=== PATIENT | male | born 1935 | race Caucasian/White ===

== ENCOUNTER 2017-05-03 11:10 | Inpatient (IN) | payer MEDICARE, BC, SELFPAY | END 2017-05-05 13:00 | disposition home or self-care (01) | DRG 179 | PROVIDERS: Admitting Provider Internal Medicine Adolescent Medicine; Emergency Provider Emergency Medicine; Family Provider Internal Medicine Adolescent Medicine; Visit Provider Internal Medicine Adolescent Medicine | DX: J15.6 Pneumonia due to other Gram-negative bacteria (principal); E86.0 Dehydration; R06.09 Other forms of dyspnea; E11.9 Type 2 diabetes mellitus without complications; I10 Essential (primary) hypertension; Z79.4 Long term (current) use of insulin | CPT/HCPCS: 36415; 71010; 80048; 80053; 80162; 82550; 82553; 82962; 83605; 84484; 85025; 87040; 87070; 87077; 87186; 87205; 93005; 94640; 94760; 96365; 96367; 97116; 97162; 99285; G0378; J0456 ==

== ENCOUNTER → 2018-12-18 08:53 | Outpatient (CLI) | payer MEDICARE, SELFPAY ==
[2018-12-18 10:26] LABS: Basophils # 0.1 K/mm3 (0-0.2); Basophils % 1.1 % (0.1-2.0); Eosinophils # 0.1 K/mm3 (0.0-0.4); Hematocrit 43.3 % (42.0-52.0); Hemoglobin 13.6 g/dL (14.1-18.0); Lymphocytes # 1.6 K/mm3 (0.7-4.5); Lymphocytes % 25.6 % (10-50); Mean Corpuscular HGB Conc 31.4 g/dL (31.8-35.4); Mean Corpuscular Hemoglobin 28.9 pg (27.0-31.2); Mean Corpuscular Volume 92.1 fl (80-94); Mean Platelet Volume 8.4 fl (7.4-10.4); Monocytes # 0.4 K/mm3 (0.1-1.0); Neutrophils % 64.2 % (37.0-80.0); Platelet Count 246 K/mm3 (142-424); Red Cell Distribution Width 13.1 % (11.5-17.5); White Blood Count 6.2 K/mm3 (4.8-10.8)
[2018-12-18 11:11] LABS: Alanine Aminotransferase 25 U/L (12-78); Albumin Level 3.5 gm/dL (3.4-5.0); Albumin/Globulin Ratio 0.7 (1.1-1.8); Alkaline Phosphatase 51 U/L (46-116); Anion Gap 11.3 mEq/L (5-15); Aspartate Amino Transferase 21 U/L (15-37); Bilirubin,Total 0.6 mg/dL (0.2-1.0); Blood Urea Nitrogen 25 mg/dL (7-18); Calcium 9.9 mg/dL (8.5-10.1); Carbon Dioxide 32 mmol/L (21.0-32.0); Chloride 97 mmol/L (98-107); Creatinine,Serum 1.56 mg/dL (0.70-1.30); Estimated Glomerular Filt Rate 43 ml/min (>60); GFR (African American) 52 ML/MIN (>60); Globulin 4.9 gm/dl (1.3-3.2); Glucose 191 mg/dL (74-106); Potassium 4.3 mmoL/L (3.5-5.1); Sodium 136 mmol/L (136-145); Total Protein,Serum 8.4 gm/dL (6.4-8.2)
[2018-12-18 12:43] LABS: Hemoglobin A1C 8.5 % (0.0-7.0)
== END ==
PROVIDERS: Visit Provider Internal Medicine Adolescent Medicine
DX: E11.9 Type 2 diabetes mellitus without complications (principal); I10 Essential (primary) hypertension
CPT/HCPCS: 36415; 80053; 83036; 85025

== ENCOUNTER 2019-12-16 13:49 | Inpatient (IN) | payer MEDICARE, SELFPAY ==
[2019-12-16] VITALS (12 sets, daily range): BP systolic 150–221; BP diastolic 66–128; PULSE 66–104; RESP 16–19; TEMP 36.4–37.1; O2SAT 95–100; BMI 18.3; BMI 15.2
--- NOTE | 2019-12-16 14:02 | HMH.EDGENADL ---
ED Disposition Clinical Impression: Hypertensive urgency, ALFONSO (acute kidney injury), Hyperglycemia Atrial fibrillation Qualifiers: Atrial fibrillation type: unspecified Qualified Code(s): I48.91 - Unspecified atrial fibrillation Disposition: Admitted As Inpatient Condition on Discharge: Fair Instructions: DI for Diarrhea and Traveler's Diarrhea -- Adult, DI for Diarrhea and Traveler's Diarrhea -- Child, DI for Nausea -- Adult, DI for Nausea -- Child Referrals: Abner Cuellar MD [Primary Care Provider] - Time of Disposition: 16:51 - Critical Care Critical Care Time: No Attestation: On , the high probability of a clinically significant, sudden or life threatening deterioration of the following system(s) required my full and direct attention, intervention and personal management. The time I documented below is in addition to time spent performing reported procedures but includes the following listed in this critical care notation. Medical Decision Making - Medical Records MR Comment: 84-year-old male with a history of hypertension diabetes presents emergency department with increased weakness and was found to be hyperglycemic on arrival here, he is also been nauseated. He arrives to the ED hemodynamically stable with tachycardia. His abdominal exam is entirely benign. He denies any chest pain shortness of breath, ACS considered. Infectious process/DKA also considered, no fever at home. No Localizing neurological deficits that would suggest CVA. Will get labs including troponin, EKG, UA, chest x-ray, CT head treat with fluid bolus and reassess. On reassessment, patient remains well. His glucose is over 700 and an anion gap concerning for DKA, he has increased troponin, EKG showing atrial fibrillation. He has ST changes in V3, however this is unchanged on repeat EKGs. He also has acute kidney injury on labs with increased creatinine. His blood pressure was elevated and he was treated with labetalol for this with good results. Initial pressure was over 200 systolic/110 diastolic. After treatment with labetalol he was 150 over 90s. He denies any nausea or vomiting at this time. Denies any chest pain. Both with his partner who is in the room with him about his CODE STATUS and how much intervention that they desire, and she is unsure. She thinks that he would want very little medical intervention, but wants to talk to his family about it. I spoke with her multiple times and at the time of admission his CODE STATUS is not clear and I explained to her we would have to make him full code for now, but that she should continue to talk to family members including his children about this so that we can proceed with his wishes in mind. Spoke to his PCP and he will be admitted for further treatment. Stable. - Ang Inquiry Pt receiving controlled substance: No Vital Signs: 12/16/19 13:50 12/16/19 14:35 12/16/19 14:49 Temperature 98.1 F Temperature Source Oral Pulse Rate [Left Radial] 104 H 100 H Respiratory Rate 16 Blood Pressure 181/128 H Blood Pressure [Right Arm] 216/100 H 221/100 H Blood Pressure Mean [Right Arm] 138 140 Blood Pressure Source [Right Arm] Automatic Cuff Blood Pressure Position [Right Arm] Sitting Sitting 02 Sat by Pulse Oximetry 96 97 Oxygen Delivery Method Room Air Room Air 12/16/19 14:54 12/16/19 15:02 12/16/19 16:07 Temperature Temperature Source Pulse Rate [Left Radial] 66 75 81 Respiratory Rate Blood Pressure Blood Pressure [Right Arm] 176/73 H 150/72 H 173/89 H Blood Pressure Mean [Right Arm] 107 98 117 Blood Pressure Source [Right Arm] Automatic Cuff Automatic Cuff Automatic Cuff Blood Pressure Position [Right Arm] Sitting Sitting Sitting 02 Sat by Pulse Oximetry 95 Oxygen Delivery Method Room Air 12/16/19 16:30 Temperature Temperature Source Pulse Rate [Left Radial] 78 Respiratory Rate Blood Pressure Blood Pressure [Right Arm] 181/76 H Blood Pr
--- NOTE | 2019-12-16 14:03 | XR_ITS ---
PROCEDURE: XR CHEST PORTABLE CLINICAL HISTORY: weakness Former smoker COMPARISON: CXR2 CHEST-AP VIEW ONLY from 11/20/2013 CXR CHEST(2 VIEWS-NOT PORTABLE) from 06/05/2015 CXR1 CHEST-PORTABLE from 05/03/2017 FINDINGS: Mild cardiomegaly without failure. Skin fold artifacts are present on both sides. No lobar consolidation or collapse. No acute bony anomaly. Diffuse coarse calcification noted over the upper abdomen consistent with chronic pancreatitis IMPRESSION: Cardiomegaly, no acute finding of the chest. Chronic pancreatitis Dictated by: Oscar Ruth MD 12/16/2019 15:48 Electronically signed by Oscar Ruth MD in [place] 12/16/2019 15:48
--- NOTE | 2019-12-16 14:07 | CT_ITS ---
PROCEDURE: CT HEAD/BRAIN WO CON CLINICAL INDICATION: confusion COMPARISON: HDWO CT HEAD W/O CONTRAST from 03/03/2016 TECHNIQUE: Axial images obtained. All CT scans at the facility use one or more dose reduction, viz: automated exposure control, ma/kV adjustment per patient size (including targeted exams where dose is matched to indication, i.e. head), or iterative reconstruction technique. FINDINGS: No midline shift, mass effect, intracranial hemorrhage, hydrocephalus, or extra-axial fluid collection is evident. There is generalized atrophy with hypoattenuation of the periventricular white matter consistent with microangiopathic changes.. 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 The calvarium has an unremarkable appearance. No mastoid effusion. No sinus air-fluid level. IMPRESSION: No acute intracranial finding Dictated by: Oscar Ruth MD 12/16/2019 15:41 Electronically signed by Oscar Ruth MD in [facility] 12/16/2019 15:41
[2019-12-16 14:15] LABS: VBG Base Excess -10.2 mmol/L (-2.4-2.3); VBG HCO3 16.8 mmol/L (23-30); VBG Oxygen Saturation 86.5 % (50-70); VBG PCO2 38.1 mmol/L (35-51); VBG PH 7.26 mmol/L (7.31-7.41); VBG PO2 59.1 mmol/L (28-40)
[2019-12-16 14:15] LABS: Chloride 82 mmol/L (98-107); Sodium 133 mmol/L (136-145)
[2019-12-16 14:17] LABS: Alanine Aminotransferase 31 U/L (12-78); Albumin Level 4.5 g/dl (3.5-5.0); Alkaline Phosphatase 70 U/L (38-126); Aspartate Amino Transferase 46 U/L (17-59); Bilirubin,Direct 0.7 mg/dl (0.0-0.4); Bilirubin,Indirect 0.5 mg/dL (0.0-0.9); Bilirubin,Total 1.2 mg/dl (0.2-1.3); Bilirubin,Unconjugated 0.6 mg/dL (0.0-1.1); Total Protein,Serum 9.1 g/dl (6.3-8.2)
[2019-12-16 14:18] LABS: Blood Urea Nitrogen 49 mg/dl (9-20); Calcium 10.1 mg/dl (8.4-10.2); Carbon Dioxide 16 mmol/L (22.0-30.0); Creatinine Clearance Estimated 19 mL/min (50-200); Estimated Glomerular Filt Rate 25 ml/min (>60); GFR (African American) 30 ML/MIN (>60)
--- NOTE | 2019-12-16 14:22 | ECG_ITS ---
APPROVED REPORT Exam: Resting ECG HR:101 bpm ECG Measurements Heart Rate 101 AXES QRSd 96 QRS 77 QT 376 T 251 QTc 487 <Conclusion> Atrial fibrillation with rapid ventricular response with premature ventricular or aberrantly conducted complexes Voltage criteria for left ventricular hypertrophy Marked ST abnormality, possible inferior/lateral subendocardial injury Abnormal ECG Electronically signed by : Simon Madrigal, 12/17/2019 15:39:32
[2019-12-16 14:23] LABS: Basophils % 0.2 % (0.1-2.0); Hematocrit 48.2 % (42.0-52.0); Hemoglobin 14.8 g/dL (14.1-18.0); Lymphocytes # 0.5 K/mm3 (0.7-4.5); Lymphocytes % 3.3 % (10-50); Mean Corpuscular HGB Conc 30.7 g/dL (31.8-35.4); Mean Corpuscular Hemoglobin 30.3 pg (27.0-31.2); Mean Corpuscular Volume 98.7 fl (80-94); Mean Platelet Volume 10.7 fl (7.4-10.4); Monocytes # 0.6 K/mm3 (0.1-1.0); Monocytes % 4.1 % (1.7-9.3); Neutrophils # 12.8 K/mm3 (1.8-7.8); Neutrophils % 92.3 % (37.0-80.0); Platelet Count 339 K/mm3 (142-424); Red Blood Count 4.89 M/mm3 (4.60-6.20); Red Cell Distribution Width 12.9 % (11.5-17.5); White Blood Count 13.8 K/mm3 (4.8-10.8)
[2019-12-16 14:29] LABS: MANUAL DIFFERENTIAL MANUAL DIFFERENTIAL (MANUAL DIFF)
[2019-12-16 14:30] LABS: Troponin I 0.83 ng/ml (0.00-0.034)
[2019-12-16 14:31] LABS: Glucose 722 mg/dl (74-100)
--- NOTE | 2019-12-16 14:42 | PC.NURSE ---
lab at bedside
[2019-12-16 14:43] LABS: Acetone, Serum (Rapid) Moderate (None Detect)
--- NOTE | 2019-12-16 15:10 | PC.NURSE ---
pt attempted to void per urinal, pt unable to void
--- NOTE | 2019-12-16 15:15 | PC.NURSE ---
pt to CT
[2019-12-16 15:20] LABS: Lymphocytes % 5 % (10-50); Monocytes % 2 % (2-9); Neutrophils % 93 % (42-76); RBC Morphology Normal; Total Cells Counted 100
[2019-12-16 15:21] LABS: Platelet Estimate Normal
[2019-12-16 15:33] LABS: INR 1.14 (0.9-1.1); Prothrombin Time 11.6 seconds (9.4-11.8)
[2019-12-16 15:34] LABS: Activated Partial Thrombo Time 23.7 seconds (23.6-34.0)
--- NOTE | 2019-12-16 15:55 | ECG_ITS ---
APPROVED REPORT Exam: Resting ECG HR:81 bpm ECG Measurements Heart Rate 81 AXES QRSd 96 QRS 75 QT 380 T 258 QTc 441 <Conclusion> Atrial fibrillation with premature ventricular or aberrantly conducted complexes Voltage criteria for left ventricular hypertrophy Marked ST abnormality, possible inferior/lateral subendocardial injury Abnormal ECG Electronically signed by : Simon Madrigal, 12/17/2019 15:36:32
--- NOTE | 2019-12-16 15:56 | PC.NURSE ---
UVALDO ELENA speaking with Dr. Cuellar
--- NOTE | 2019-12-16 16:02 | PC.NURSE ---
dr valdivia spoke with dr jeff regarding admission
--- NOTE | 2019-12-16 17:10 | PC.NURSE ---
BS 523
--- NOTE | 2019-12-16 17:34 | PC.NURSE ---
and daughter at bedside, attempted to discuss DNR status, pt's daughter states my brother is POA, I will have to talk to him
[2019-12-16 18:29] LABS: Troponin I 3.91 ng/ml (0.00-0.034)
--- NOTE | 2019-12-16 19:20 | PC.NURSE ---
report given to katlin
--- NOTE | 2019-12-16 21:22 | HMH.HP ---
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 He did not want to come to the hospital and stated that he felt fine. In the emergency department he was found to have significant dehydration, elevated troponins, atrial fibrillation with rapid ventricular response and hypertensive crisis with blood pressure in the 190s. He was also found to have significant hyperglycemia with blood sugar in the 700 range. Chest x-ray showed cardiomegaly, and CT scan showed old atrophy and old ischemic changes. He was given IV fluids, IV labetalol I was consulted by ER doctor. I recommended symptomatic treatment/supportive care with fluids, treatment of his hypertension and gentle lowering of his glucose. I examined him later in the afternoon on second floor and discussed case with his daughter and his long-time group sales coordinator. The patient continues to state that he feels well and he denies any chest pain, shortness or breath or chest pain. [facility] History Medical History: Reports:: Atrial Fibrillation, Cancer (PROSTATE), Diabetes Mellitus Type 2, Hyperlipidemia, Hypertension Denies:: Diabetes Mellitus Type 1, Internal Pacemaker, MRSA *Have you ever received a pneumonia vaccine?: No *Have you received a flu vaccine this season?: No Comment:: Chronic insomnia and long-term benzo use qhs Other Surgeries: No: Pacemaker Amputation: No Fractures: No - *Social History Last grade of school completed: 7th or 8th Smoking Status: Former smoker # Packs/Day (cigarettes): 2 Alcohol Intake: never *Occupational Status:: retired Housing: house Household Members: other *Travel in the last 8 weeks: None Family Hx:: Coronary Artery Disease, Diabetes, Hyperlipidemia, Hypertension Review of Systems - Review of Systems Review of systems:: pertinent systems reviewed and negative unless documented below - Constitutional Reports weakness - ENT Reports abnormal hearing, Reports poor balance, Reports dizziness - *Cardiovascular Reports shortness of breath - *Genitourinary Reports difficulty urinating - *Musculoskeletal Reports abnormal walking - *Neurologic Reports confusion - Psychiatric Reports abnormal sleep pattern Meds Home Medications Medication Instructions Recorded Confirmed Type Digoxin [Digoxin 0.125mg Tablet] 125 mcg PO DAILY 12/16/19 12/16/19 History Potassium Chloride 10 meq PO DAILY 12/16/19 12/16/19 History Temazepam [Restoril] 30 mg PO DAILY 12/16/19 12/16/19 History Triamterene/Hydrochlorothiazid 1 each PO DAILY 12/16/19 12/16/19 History [Triamterene-Hctz 37.5-25 mg Tb] Allergies Allergy/AdvReac Type Severity Reaction Status Date / Time No Known Allergies Allergy Unverified 05/23/17 14:10 Exam Vital signs and Labs for Last 24 Hours: Temp Pulse Resp BP Pulse Ox 97.6 F 89 16 182/92 H 99 12/16/19 17:43 12/16/19 17:43 12/16/19 17:43 12/16/19 17:43 12/16/19 18:32 Laboratory Results - last 24 hr 12/16/19 13:45: WBC 13.8 H, RBC 4.89, Hgb 14.8, Hct 48.2, MCV 98.7 H, MCH 30.3, MCHC 30.7 L, RDW 12.9, Plt Count 339, MPV 10.7 H, Neut % (Auto) 92.3 H, Lymph % (Auto) 3.3 L, [place] % (Auto) 4.1, Eos % (Auto) 0.0 L, Baso % (Auto) 0.2, Neut # (Auto) 12.8 H, Lymph # (Auto) 0.5 L, [place] # (Auto) 0.6, Eos # (Auto) 0.0, Baso # (Auto) 0.0, Total Counted 100, Neutrophils % (Manual) 93 H, Lymphocytes % (Manual) 5 L, Monocytes % (Manual) 2, Platelet Estimate Normal, RBC Morphology Normal 12/16/19 13:45: Sodium 133 L, Potassium 4.0, Chloride 82 L, Carbon Dioxide 16 L, Anion Gap 39.0 H, BUN 49 H, Creatinine 2.50 H, Estimated Creat Clear 19, Estimated GFR 25 L, Est GFR ( Amer) 30 L, Glucose 722 H*, Calcium 10.1, Tr
[2019-12-16 22:18] LABS: POC Glucose,Bedside 441 (70-110)
[2019-12-17] VITALS (9 sets, daily range): BP systolic 151–188; BP diastolic 76–87; PULSE 40–86; RESP 16–18; TEMP 36.6–37.2; O2SAT 93–98; BMI 15.6
[2019-12-17 06:23] LABS: POC Glucose,Bedside 522 (70-110)
[2019-12-17 06:24] LABS: POC Glucose,Bedside 293 (70-110)
[2019-12-17 06:48] LABS: Chloride 99 mmol/L (98-107); Sodium 135 mmol/L (136-145)
[2019-12-17 06:49] LABS: Eosinophils % 0.1 % (0.1-12.0); Hematocrit 42.4 % (42.0-52.0); Hemoglobin 13.5 g/dL (14.1-18.0); Lymphocytes # 0.7 K/mm3 (0.7-4.5); Lymphocytes % 3.6 % (10-50); Mean Corpuscular HGB Conc 31.8 g/dL (31.8-35.4); Mean Corpuscular Hemoglobin 30.4 pg (27.0-31.2); Mean Corpuscular Volume 95.6 fl (80-94); Mean Platelet Volume 9.3 fl (7.4-10.4); Monocytes # 0.9 K/mm3 (0.1-1.0); Monocytes % 4.6 % (1.7-9.3); Neutrophils # 17.2 K/mm3 (1.8-7.8); Neutrophils % 91.6 % (37.0-80.0); Platelet Count 265 K/mm3 (142-424); Potassium 4.2 mmoL/L (3.5-5.1); Red Blood Count 4.44 M/mm3 (4.60-6.20); Red Cell Distribution Width 13.5 % (11.5-17.5); White Blood Count 18.8 K/mm3 (4.8-10.8)
[2019-12-17 06:51] LABS: Alanine Aminotransferase 21 U/L (12-78); Alkaline Phosphatase 49 U/L (38-126); Anion Gap 16.2 mEq/L (5-15); Aspartate Amino Transferase 105 U/L (17-59); Bilirubin,Total 0.9 mg/dl (0.2-1.3); Blood Urea Nitrogen 53 mg/dl (9-20); Carbon Dioxide 24 mmol/L (22.0-30.0); Creatinine Clearance Estimated 20 mL/min (50-200); Estimated Glomerular Filt Rate 32 ml/min (>60); GFR (African American) 39 ML/MIN (>60)
[2019-12-17 06:52] LABS: Albumin Level 3.5 g/dl (3.5-5.0); Albumin/Globulin Ratio 0.9 (1.1-1.8); Globulin 3.7 g/dL (1.3-3.2); Glucose 305 mg/dl (74-100); Total Protein,Serum 7.2 g/dl (6.3-8.2)
[2019-12-17 06:53] LABS: MANUAL DIFFERENTIAL MANUAL DIFFERENTIAL (MANUAL DIFF)
--- NOTE | 2019-12-17 07:32 | HMH.ACPN2 ---
Internal Medicine - PN: Subj *Date: 12/17/19 *Time: 19:17 Interval history: 84-year-old gentleman admitted for DKA, acute on chronic kidney failure, hypertensive urgency, and high anion gap anabolic acidosis. Did well overnight with intermittent subcu insulin for his hyperglycemia. Anion gap much better this morning. Blood sugar better controlled, kidney function somewhat improved. Patient is quite cachectic, fatigued, hard of hearing. Difficult time getting any review of systems or history from patient. He had no complaints and stated he felt well on interview this morning. Noted to have significant elevation in his white cell count on labs this morning, no clear source for infection however and no criteria for sepsis at this time. Exam Vital signs and Labs for Last 24 Hours: Temp Pulse Resp BP Pulse Ox 99 F 80 16 159/76 H 98 12/17/19 03:41 12/17/19 04:00 12/17/19 03:41 12/17/19 03:41 12/17/19 03:41 Laboratory Results - last 24 hr 12/16/19 13:45: WBC 13.8 H, RBC 4.89, Hgb 14.8, Hct 48.2, MCV 98.7 H, MCH 30.3, MCHC 30.7 L, RDW 12.9, Plt Count 339, MPV 10.7 H, Neut % (Auto) 92.3 H, Lymph % (Auto) 3.3 L, [place] % (Auto) 4.1, Eos % (Auto) 0.0 L, Baso % (Auto) 0.2, Neut # (Auto) 12.8 H, Lymph # (Auto) 0.5 L, [place] # (Auto) 0.6, Eos # (Auto) 0.0, Baso # (Auto) 0.0, Total Counted 100, Neutrophils % (Manual) 93 H, Lymphocytes % (Manual) 5 L, Monocytes % (Manual) 2, Platelet Estimate Normal, RBC Morphology Normal 12/16/19 13:45: Sodium 133 L, Potassium 4.0, Chloride 82 L, Carbon Dioxide 16 L, Anion Gap 39.0 H, BUN 49 H, Creatinine 2.50 H, Estimated Creat Clear 19, Estimated GFR 25 L, Est GFR ( Amer) 30 L, Glucose 722 H*, Calcium 10.1, Troponin I 0.83 H 12/16/19 13:45: Total Bilirubin 1.2, Direct Bilirubin 0.7 H, Conjugated Bilirubin 0.0, Indirect Bilirubin 0.5, Unconjugated Bilirubin 0.6, AST 46, ALT 31, Alkaline Phosphatase 70, Total Protein 9.1 H, Albumin 4.5, Acetone Level Moderate 12/16/19 13:45: Digoxin 0.70 12/16/19 14:04: VBG pH 7.26 L, VBG pCO2 38.1, VBG pO2 59.1 H, VBG HCO3 16.8 L, VBG Total CO2 18.0 L, VBG O2 Saturation 86.5 H, VBG Base Excess -10.2 L 12/16/19 14:38: PT 11.6, INR 1.14 H, APTT 23.7 12/16/19 14:38: Digoxin 0.80 12/16/19 16:56: Troponin I 3.91 H 12/16/19 17:04: POC Glucose 522 H* 12/16/19 22:09: POC Glucose 441 H* 12/17/19 06:01: POC Glucose 293 H 12/17/19 06:30: WBC 18.8 H D, RBC 4.44 L, Hgb 13.5 L, Hct 42.4, MCV 95.6 H, MCH 30.4, MCHC 31.8, RDW 13.5, Plt Count 265, MPV 9.3, Neut % (Auto) 91.6 H, Lymph % (Auto) 3.6 L, [place] % (Auto) 4.6, Eos % (Auto) 0.1, Baso % (Auto) 0.0 L, Neut # (Auto) 17.2 H, Lymph # (Auto) 0.7, [place] # (Auto) 0.9, Eos # (Auto) 0.0, Baso # (Auto) 0.0 12/17/19 06:30: Sodium 135 L, Potassium 4.2, Chloride 99 D, Carbon Dioxide 24 D, Anion Gap 16.2 H, BUN 53 H, Creatinine 2.00 H, Estimated Creat Clear 20, Estimated GFR 32 L, Est GFR ( Amer) 39 L D, Glucose 305 H D, Total Bilirubin 0.9, AST 105 H D, ALT 21 D, Alkaline Phosphatase 49, Total Protein 7.2, Albumin 3.5 D, Globulin 3.7 H, Albumin/Globulin Ratio 0.9 L I & O for Last 24 hours: Intake & Output 12/14/19 12/15/19 12/16/19 12/17/19 23:59 23:59 23:59 23:59 Intake Total 360 / 360 1743 / 1743 Balance 360 / 360 1743 / 1743 Weight 50.887 kg 52.299 kg - Constitutional mild distress, cachectic, chronically ill appearing Comments: Hard of hearing - *Routine HEENT Exam Head: Present: normocephalic Eye: Present: EOMI, PERRL ENT: Present: mucous membranes moist Comments: Bitemporal wasting, loss of periorbital fat - *Routine Neck Exam Present: supple. Absent: lymphadenopathy - Routine Chest/Breast/Axilla Exam Comments: Prominent ribs and clavicles across chest, loss of muscle mass - *Routine Respiratory Exam Present: CTA bilaterally - *Routine Cardiovascular Exam Present: irregular rhythm - *Routine Abdominal Exam Present: soft, normoactive bowel sounds. Absent: tenderness - *Routine Ext
[2019-12-17 07:42] LABS: Acetone, Serum (Rapid) Small (None Detect); Calcium 8.8 mg/dl (8.4-10.2)
--- NOTE | 2019-12-17 07:43 | HMH.PHAVTE ---
[facility] Pharmacy VTE Monitoring - Patient Demographics Admission date: 12/16/19 Report Date: 12/17/19 Time: 07:43 Allergies/Adverse Reactions: Patient Allergies No Known Allergies Allergy (Unverified 05/23/17 14:10) Height: 1.83 m Weight: 52.299 kg Patient Problems: Current Active Problems Hypertensive urgency (Acute) Atrial fibrillation (Acute) ALFONSO (acute kidney injury) (Acute) Hyperglycemia (Acute) Elevated troponin (Acute) DKA (diabetic ketoacidoses) (Acute) - VTE Risk Labs: VTE Related Lab Results Hgb 13.5 g/dL (14.1-18.0) L 12/17/19 06:30 Hct 42.4 % (42.0-52.0) 12/17/19 06:30 Plt Count 265 K/mm3 (142-424) 12/17/19 06:30 PT 11.6 seconds (9.4-11.8) 12/16/19 14:38 INR 1.14 (0.9-1.1) H 12/16/19 14:38 APTT 23.7 seconds (23.6-34.0) 12/16/19 14:38 BUN 53 mg/dl (9-20) H 12/17/19 06:30 Creatinine 2.00 mg/dl (0.66-1.25) H 12/17/19 06:30 Estimated Creat Clear 20 mL/min (50-200) 12/17/19 06:30 VTE Score: 5 Clinical Trial Participant: No - Prophylaxis VTE Prophylaxis Ordered?: Yes Types of VTE Prophylaxis: TEDS Knee High
[2019-12-17 08:23] LABS: Lymphocytes % 2 % (10-50); Monocytes % 6 % (2-9); Neutrophils % 89 % (42-76); Total Cells Counted 100
[2019-12-17 08:24] LABS: Platelet Estimate Normal; RBC Morphology Normal
--- NOTE | 2019-12-17 08:27 | PC.NURSE ---
Addendum entered by Jimena Looney RN 12/17/19 08:32: AFIB NOTED ON PIT HAND* Original Note: A&O X4 AT BEGINNING OF SHIFT. PT RESTED WELL WITH EYES CLOSED C/O. THIS AM UPON AWAKENING PT NOTED CONFUSED ON SITUATION AND PLACE. THIS RN ATTEMPTED TO REORIENTATE PT. TOLERATED RA WELL WITH NO C/O SOA. NO EDEMA NOTED. PACED RHYTHM NOTED ON PIT HAND THIS SHIFT. VSS. HYPERGLYCEMIC WITH FS GLU CHECKS. ADMINISTERED INSULIN PER SSI. REMAINS INCONTINENT OF B&B. NEED UA SPECIMEN. REFUSED TEDS. BED ALARM ON AND FUNCTIONING. CALL LIGHT WITHIN REACH. WILL CONTINUE TO MONITOR.
--- NOTE | 2019-12-17 09:01 | HMH.PHAINT ---
HOME MEDICATION RECONCILIATION COMPLETED USING LIST FROM [facility], DR MORRIS'S OFFICE AND PT INTERVIEW.
--- NOTE | 2019-12-17 11:44 | HMH.PTEV ---
Physical Therapy Evaluation Rehab PT IP Evaluation Start: 12/17/19 09:42 Freq: ONCE Status: Active Protocol: Document 12/17/19 11:41 PHORNE (Rec: 12/17/19 11:44 PHORNE [id number]) Subjective/History History History 84 yowm adm to [facility] with general weakness and dehydration. He reports he lives at home with spouse, refuses to use a cane or walker at baseline, but is able to ambulate with assist. Subjective Subjective Pt with no c/o this am. Rehab PT IP Eval Objective Appearance Patient Behavior Appropriate Patient Orientation Person,Place,Time Difficulty following instructions none Speech Pattern Clear Ambulation Patient Able to Ambulate Yes Ambulation Observation IP General Gait Pattern Observation Wide Based Gait,Shuffling Step Ambulation Distance (feet) 5 Ambulation Assistive Device None Ambulation Ability Minimal x 1 (25% assist) Balance Ability to Arise Able, uses arms to help Sitting Balance Steady, safe Standing Balance Steady, wide stance Dynamic Sitting Balance Ability Good Dynamic Standing Balance Ability Poor Transfers Bed Transfer Ability Contact Guard/Hand Hold Chair Transfer Ability Minimal x 1 (25% assist) Sit to Stand Bed Transfer Ability Minimal x 1 (25% assist) Sit to Stand Chair Transfer Ability Minimal x 1 (25% assist) ROM All Extremities PT ROM Status WFL MMT All Extremities PT MMT WFL Rehab PT IP prob,goals,plan Problems Date of Evaluation: 12/17/19 PT IP Problems Bed Mobility,Transfers,Gait Rehab Potential Rehab Potential Fair Plan PT Intervention Plan Bed Mobility,Transfers,Gait, Therapeutic Exercise PT Plan Frequency BID Duration LOS Discharge Goals Bed Transfer Ability Contact Guard/Hand Hold Sit to Stand Chair Transfer Ability Contact Guard/Hand Hold Ambulation Assistive Device Rolling Walker Ambulation Distance (feet) 15 Discharge Plan PT Discharge Plan Pt is most appropriate for rehab placement at this time, but could return home with assist if he prefers once medically stable. G -code Required No Eval Complexity Eval Charge Codes 62690 - Moderate Complexity PHYSICIAN CERTIFICATION: I certify the specified therapy se
[2019-12-17 11:53] LABS: POC Glucose,Bedside 129 (70-110)
[2019-12-17 11:59] LABS: POC Glucose,Bedside > 600 (70-110)
--- NOTE | 2019-12-17 12:47 | SW/DCPLANNER ---
Addendum entered by Ana Paula Burger 12/17/19 13:23: Family has called back and stated they would like more time to discuss with additional family. Family will have a decision this evening or in the AM. Original Note: I have spoke with this patients daughter regarding discharge plans. Daughter stated that patient resides at home with his significant other. I have explained the options of placement (not patient preference) vs Home Health vs Hospice (MD recommended). Daughter stated that she would need to speak with her brother and contact me back. My name and number has been left for daughter and I have explained if they have any further questions Dr De Oliveira would be happy to assist as well.
--- NOTE | 2019-12-17 12:52 | HMH.OTEV ---
OT Inpatient Evaluation Rehab OT IP Evaluation Start: 12/17/19 09:42 Freq: ONCE Status: Complete Protocol: Document 12/17/19 12:44 KRYSTAL ([facility]17[facility]19 12[id number] Rehab OT IP Assessment Subjective History Pt oriented to self and birthday on arrival. Pt was admitted via ED on 12/16/19 with a past medical history of a-fib, prostate CA, DM type 2 , hyperlipidemia, and HTN. Pt reports he lived at home with his prior to coming to the hospital. Pt claims his assisted him with showering, but he was able to dress and feed himself. He was dependent upon his to complete all IADL's. Pt does not use a walker or cane, but reports he holds on to stuff while walking. Subjective I can't hear you. Objective Patient Orientation Person,Birthday Upper Extremity Gross ROM WFL Bed Mobility bed mobility-scooting,bed mobility - supine/sit,bed mobility - rolling Assist Level Supervision/Stand by Transfer Training Sit/Stand Transfer Assist Level Contact Guard/Hand Hold Chair Transfer Ability Contact Guard/Hand Hold Chair Transfer Technique Sit to/from Ambulatory Chair Transfer Assistive Devices Rolling Walker Rehab OT IP prob,goals,plan Problems Date of Evaluation: 12/17/19 OT IP Problems Bed Mobility,Transfers,Gait, Balance,Self care,Safety Rehab Potential Rehab Potential Good Equipment Needs Assistive Devices Rolling / Wheeled Walker Plan OT intervention Plan Bed Mobility,Transfers,Gait, Balance,Self care,Safety, Therapeutic Exercise OT Plan Frequency Daily Duration LOS Discharge Goals Bed Mobility Ability Standby Assistance Sit to Stand Chair Transfer Ability Supervision/Stand by Chair Transfer Ability Supervision/Stand by Chair Transfer Technique Sit to/from Ambulatory Chair Transfer Assistive Devices Rolling Walker Feeding Ability Independent Lower Body Dressing Ability Assistance X1 Upper Body Dressing Ability Standby Assistance Bathing Ability Assistance x1
[2019-12-17 12:56] LABS: Microscopic,Cath URINE MICROSCOPIC (MICROSCOPIC)
[2019-12-17 12:58] LABS: Appearance,Urine/Cath CLEAR (Clear); Blood, Urine/Cath 2+ (Negative); Color,Urine/Cath YELLOW (Yellow); Glucose,Urine/Cath (UA) 3+ (Negative); Ketones,Urine/Cath 1+ (Negative); Leukocyte Esterase,Cath Negative (Negative); Nitrate,Cath Negative (Negative); Protein,Urine/Cath 3+ (Negative); Specific Gravity, Urine/Cath >= 1.030 (1.005-1.030); Urobilinogen,Cath 0.2 EU/dl (0.2)
[2019-12-17 13:08] LABS: Bilirubin,Cath Negative (Negative)
[2019-12-17 13:09] LABS: Bacteria,Urine/Cath 1+ /lpf
--- NOTE | 2019-12-17 14:18 | ECG_ITS ---
APPROVED REPORT Exam: Resting ECG HR:78 bpm ECG Measurements Heart Rate 78 AXES QRSd 94 QRS 60 QT 402 T 251 QTc 458 <Conclusion> Atrial fibrillation with premature ventricular or aberrantly conducted complexes Possible Inferior infarct, age undetermined ST & T wave abnormality, consider lateral ischemia or digitalis effect Abnormal ECG Electronically signed by : Abner Cuellar, 12/20/2019 17:15:09
[2019-12-17 14:34] LABS: Alanine Aminotransferase 19 U/L (12-78); Albumin Level 3.3 g/dl (3.5-5.0); Albumin/Globulin Ratio 0.9 (1.1-1.8); Alkaline Phosphatase 58 U/L (38-126); Anion Gap 12.3 mEq/L (5-15); Aspartate Amino Transferase 101 U/L (17-59); Bilirubin,Total 0.8 mg/dl (0.2-1.3); Blood Urea Nitrogen 51 mg/dl (9-20); Calcium 8.8 mg/dl (8.4-10.2); Carbon Dioxide 26 mmol/L (22.0-30.0); Chloride 101 mmol/L (98-107); Creatinine Clearance Estimated 24 mL/min (50-200); Estimated Glomerular Filt Rate 39 ml/min (>60); GFR (African American) 47 ML/MIN (>60); Globulin 3.7 g/dL (1.3-3.2); Glucose 343 mg/dl (74-100); Lipase 71 U/L (23-300); Potassium 4.3 mmoL/L (3.5-5.1); Sodium 135 mmol/L (136-145)
--- NOTE | 2019-12-17 15:23 | HMH.CNCARD ---
History of Present Illness Consult date: 12/17/19 Requesting physician: Julius De Oliveira Chief complaint: SOA Additional Medical History:: 1. Diabetes mellitus, treated for many years 2. History of renal insufficiency A. CKD stage 3-4 3. DNR 4. Extremely hard of hearing 5. Remote history of tobacco use 6. Hypertension 7. Atrial fibrillation History of present illness: 84-year-old white male with history of diabetes, chronic renal insufficiency and hypertension who infrequently comes to the office, who lives at home with his long-time angle bender and maintains a DNR status, came to emergency department because of significant weakness and lethargy. He did not want to come to the hospital and stated that he felt fine. In the emergency department he was found to have significant dehydration, elevated troponins, atrial fibrillation with rapid ventricular response and hypertensive crisis with blood pressure in the 190s. He was also found to have significant hyperglycemia with blood sugar in the 700 range. Chest x-ray showed cardiomegaly, and CT scan showed old atrophy and old ischemic changes. He was given IV fluids, IV labetalol I was consulted by ER doctor. I recommended symptomatic treatment/supportive care with fluids, treatment of his hypertension and gentle lowering of his glucose. I examined him later in the afternoon on second floor and discussed case with his daughter and his long-time angle bender. The patient continues to state that he feels well and he denies any chest pain, shortness or breath or chest pain. The above per Dr. Cuellar Patient is extremely hard of hearing which makes it very difficult to ascertain symptoms from him. His longtime angle bender is in the room and explains that he has been just extremely weak and complaining of no energy. Patient denies chest pain, pressure or tightness. No prior cardiac history. Cardiology was consulted today due to elevated troponin with peak of 24 at this time. [facility] History Medical History: Reports:: Atrial Fibrillation, Cancer (PROSTATE), Diabetes Mellitus Type 2, Hyperlipidemia, Hypertension Denies:: Diabetes Mellitus Type 1, Internal Pacemaker, MRSA *Have you ever received a pneumonia vaccine?: No *Have you received a flu vaccine this season?: No Other Surgeries: No: Pacemaker Amputation: No Fractures: No - *Social History Last grade of school completed: 7th or 8th Smoking Status: Former smoker # Packs/Day (cigarettes): 2 Alcohol Intake: never *Occupational Status:: retired Housing: house Household Members: other *Travel in the last 8 weeks: None Family Hx:: Coronary Artery Disease, Diabetes, Hyperlipidemia, Hypertension Meds Home Medications Medication Instructions Recorded Confirmed Type Digoxin [Digoxin 0.125mg Tablet] 125 mcg PO DAILY 12/16/19 12/16/19 History Potassium Chloride 10 meq PO BID 12/16/19 12/17/19 History Temazepam [Restoril] 30 mg PO HS 12/16/19 12/17/19 History Triamterene/Hydrochlorothiazid 1 cap PO DAILY 12/16/19 12/17/19 History [Triamterene-Hctz 37.5-25 mg Tb] Allergies Allergy/AdvReac Type Severity Reaction Status Date / Time No Known Allergies Allergy Unverified 05/23/17 14:10 Review of Systems - Review of Systems Review of systems:: unable to obtain - *Neurologic Reports abnormal walking, Reports abnormal hearing, Reports confusion, Reports unsteadiness, Reports dizziness, Reports weakness Exam Vital signs and Labs for Last 24 Hours: Temp Pulse Resp BP Pulse Ox 97.9 F 70 18 156/87 H 94 L 12/17/19 11:46 12/17/19 12:00 12/17/19 11:46 12/17/19 11:46 12/17/19 11:46 Laboratory Results - last 24 hr 12/16/19 13:53: POC Glucose > 600 H* 12/16/19 14:38: PT 11.6, INR 1.14 H, APTT 23.7 12/16/19 14:38: Digoxin 0.80 12/16/19 16:56: Troponin I 3.91 H 12/16/19 17:04: POC Glucose 522 H* 12/16/19 22:09: POC Glucose 441 H* 12/17/19 06:01: POC Glucose 293 H 12/17/19 06:30: Acetone Level Small 12/17/19
[2019-12-17 17:11] LABS: POC Glucose,Bedside 331 (70-110)
--- NOTE | 2019-12-17 18:31 | PC.NURSE ---
Pt has been pleasant and cooperative this shift. No complaints of pain or SOA. A&O X2. TANGIRNAQ. Pt worked with PT/OT this shift and sat up in the recliner for a few hours. Pt ambulates with 2 assist and is noted to be extremely weak. Appetite is poor, although liquid intake is good. F/C inserted this shift and is draining at bedside to gravity. FSBS results have been 129 and 331, both of which have required insulin coverage per sliding scale. 20 G peripheral IV in place to the LT AC is patent and infusing NS w/ 20 K+ @ 150 ML/HR. VSS. Call light within reach. Will continue to monitor.
[2019-12-17 21:03] LABS: POC Glucose,Bedside 261 (70-110)
--- NOTE | 2019-12-17 21:10 | CA_ITS ---
APPROVED REPORT EXAM: Comprehensive 2D, Doppler, and color-flow Echocardiogram Machine Setter: Roseline De La Fuente RDCS Ht: 6 ft 0 in Wt: 112lbs BSA: 1.67 BP: 182/92 mmHg Indications: HTN,CHF,AF 2D Dimensions LVOT 2.04 cm (M/F) 1.5-2.5 M-Mode Dimensions RVDd 0.84 cm (0.9-2.6) LVDd 4.59 cm (3.5-5.7) LVDs 3.45 cm (3.5-5.7) IVSd 1.07 cm (0.6-1.1) PWd 0.80 cm (0.6-1.1) EF (Teich) 49.30% FS 24.80% EDV (Teich) 96.80 mL ESV (Teich) 49.10 mL Aortic Valve LVOT Max 115.00 (70-110 cm/s) LVOT VTI 19.74 cm Left Ventricle Left atrium is moderately enlarged, left ventricle is normal size, mild concentric left ventricular hypertrophy, visually estimated ejection fraction 55% with no regional wall motion abnormality, diastolic parameters are inconclusive. Right Ventricle Right atrium and right ventricle are mildly enlarged with normal contractility. Aortic Valve Aortic valve is thickened and calcified with severe restriction to leaflet mobility, the aortic outflow velocity and Doppler is not indicated above aortic stenosis, however morphologically it appears to be severe aortic stenosis, there is mild aortic insufficiency. Mitral Valve Mitral valve leaflets are minimally thickened, there is mild mitral regurgitation. Tricuspid Valve Tricuspid valve is minimally thickened, there is mild tricuspid regurgitation, calculated right ventricular systolic pressure is 48 mmHg. Pulmonic Valve Pulmonic valve is poorly visualized. Great Vessels Aortic root is normal size. Pericardium No significant pericardial effusion noted. Conclusion 1. Biatrial abdomen, normal left ventricular size, mild concentric left ventricular hypertrophy, visually estimated ejection fraction 55% with no regional wall motion abnormality, diastolic parameters are inconclusive. 2. Mildly enlarged right ventricle with normal contractility. 3. Thickened and calcified aortic valve likely with severe aortic stenosis, if clinically indicated a transesophageal echocardiogram is recommended for evaluation of the morphology of the aortic valve and degree of aortic stenosis, there is mild aortic insufficiency. 4. Mild mitral and tricuspid regurgitation. 5. No significant pericardial effusion noted. Electronically signed by : Roly Valdez, 12/17/2019 19:31:16
--- NOTE | 2019-12-18 01:42 | PC.NURSE ---
s/w Dr. Cuellar @ 2238 opn 12/17/19, ok'ed to d/c tele. made aware pt had dropped to 30's and sustained in 40's a few times this evening.
[2019-12-18 04:00] VITALS: BP 153/78; PULSE 63; RESP 18; TEMP 36.7; O2SAT 90
--- NOTE | 2019-12-18 05:22 | PC.NURSE ---
PT IS A&OX3 THIS SHIFT. PT HAS TOLERATED RA WELL T/O SHIFT. PT RESTING WITH EYES CLOSED T/O MAJORITY OF SHIFT. PT HAS HAD NO C/O CHEST PAIN, NA/VO/ OR SOA THIS SHIFT. PT HAS BEEN BRADYCARDIC T/O SHIFT, AWARE. PT HAS BEEN NPO SINCE MIDNIGHT, TOLERATED WELL. F/C PRESENT DRAINING BRIGHT YELLOW URINE. NO COMPLAINTS THUS FAR, VSS WILL CONTINUE TO MONITOR.
[2019-12-18 05:37] VITALS: BMI 15.8
[2019-12-18 07:15] LABS: Microscopic, Urine URINE MICROSCOPIC (MICROSCOPIC)
[2019-12-18 07:20] LABS: Appearance,Urine CLEAR (Clear); Blood, Urine 2+ (Negative); Color,Urine YELLOW (Yellow); Glucose,Urine (UA) 1+ (Negative); Ketones,Urine TRACE (Negative); Leukocyte Esterase,Urine Negative (Negative); Nitrate,Urine Negative (Negative); Protein,Urine 2+ (Negative); Specific Gravity, Urine >= 1.030 (1.005-1.030); Urobilinogen,Urine 0.2 EU/dl (0.2)
[2019-12-18 07:24] LABS: Bilirubin,Urine Negative (Negative)
[2019-12-18 07:29] LABS: Eosinophils % 0.1 % (0.1-12.0); Hematocrit 34.1 % (42.0-52.0); Hemoglobin 11.3 g/dL (14.1-18.0); Lymphocytes # 0.9 K/mm3 (0.7-4.5); Lymphocytes % 5.9 % (10-50); Mean Corpuscular Hemoglobin 30.3 pg (27.0-31.2); Mean Corpuscular Volume 91.9 fl (80-94); Mean Platelet Volume 10.2 fl (7.4-10.4); Monocytes # 0.8 K/mm3 (0.1-1.0); Monocytes % 5.1 % (1.7-9.3); Neutrophils % 88.8 % (37.0-80.0); Platelet Count 204 K/mm3 (142-424); Red Blood Count 3.72 M/mm3 (4.60-6.20); Red Cell Distribution Width 13.4 % (11.5-17.5); White Blood Count 14.6 K/mm3 (4.8-10.8)
[2019-12-18 07:37] LABS: MANUAL DIFFERENTIAL MANUAL DIFFERENTIAL (MANUAL DIFF)
[2019-12-18 07:42] LABS: Chloride 106 mmol/L (98-107); Potassium 4.5 mmoL/L (3.5-5.1); Sodium 136 mmol/L (136-145)
[2019-12-18 07:44] LABS: Blood Urea Nitrogen 52 mg/dl (9-20); Creatinine Clearance Estimated 26 mL/min (50-200); Estimated Glomerular Filt Rate 41 ml/min (>60); GFR (African American) 50 ML/MIN (>60)
[2019-12-18 07:45] LABS: Alanine Aminotransferase 22 U/L (12-78); Albumin Level 2.5 g/dl (3.5-5.0); Albumin/Globulin Ratio 0.8 (1.1-1.8); Alkaline Phosphatase 39 U/L (38-126); Anion Gap 11.5 mEq/L (5-15); Aspartate Amino Transferase 63 U/L (17-59); Bilirubin,Total 0.6 mg/dl (0.2-1.3); Calcium 8.1 mg/dl (8.4-10.2); Carbon Dioxide 23 mmol/L (22.0-30.0); Globulin 3.2 g/dL (1.3-3.2); Glucose 160 mg/dl (74-100); Magnesium 2.1 mg/dl (1.6-2.3); Phosphorous 2.3 mg/dl (2.5-4.5); Total Protein,Serum 5.7 g/dl (6.3-8.2)
[2019-12-18 07:53] VITALS: PULSE 63; RESP 20; O2SAT 97
[2019-12-18 07:57] LABS: Lymphocytes % 12 % (10-50); Monocytes % 1 % (2-9); Neutrophils % 86 % (42-76); Platelet Estimate Normal; RBC Morphology Normal; Total Cells Counted 100
[2019-12-18 08:00] VITALS: BP 157/71; PULSE 63; RESP 20; TEMP 36.6; O2SAT 97
[2019-12-18 08:05] LABS: Bacteria,Urine Trace /lpf
--- NOTE | 2019-12-18 08:56 | HMH.ACPN2 ---
Internal Medicine - PN: Subj *Date: 12/18/19 *Time: 08:56 Interval history: Overall patient did well through the night, no pains, continues to deny discomfort. Exam Vital signs and Labs for Last 24 Hours: Temp Pulse Resp BP Pulse Ox 97.9 F 63 20 157/71 H 97 12/18/19 08:00 12/18/19 08:00 12/18/19 08:00 12/18/19 08:00 12/18/19 08:00 Laboratory Results - last 24 hr 12/16/19 13:53: POC Glucose > 600 H* 12/17/19 11:44: POC Glucose 129 H 12/17/19 12:40: Urine Color Yellow, Urine Appearance Clear, Urine pH 6.0, Ur Specific [place] >= 1.030, Urine Protein 3+, Urine Glucose (UA) 3+, Urine Ketones 1+, Urine Blood 2+, Urine Nitrate Negative, Urine Bilirubin Negative, Urine Urobilinogen 0.2, Ur Leukocyte Esterase Negative, Urine RBC 3-5, Urine WBC 5-10, Ur Squamous Epith Cells 3-5, Urine Bacteria 1+ 12/17/19 14:12: Sodium 135 L, Potassium 4.3, Chloride 101, Carbon Dioxide 26, Anion Gap 12.3, BUN 51 H, Creatinine 1.70 H, Estimated Creat Clear 24, Estimated GFR 39 L, Est GFR ( Amer) 47 L D, Glucose 343 H, Calcium 8.8, Total Bilirubin 0.8, AST 101 H, ALT 19, Alkaline Phosphatase 58, Troponin I 24.60 H, Total Protein 7.0, Albumin 3.3 L, Globulin 3.7 H, Albumin/Globulin Ratio 0.9 L, Lipase 71 12/17/19 16:50: POC Glucose 331 H* 12/17/19 20:39: POC Glucose 261 H 12/18/19 06:55: Urine Color Yellow, Urine Appearance Clear, Urine pH 6.0, Ur Specific [place] >= 1.030, Urine Protein 2+, Urine Glucose (UA) 1+, Urine Ketones Trace, Urine Blood 2+, Urine Nitrate Negative, Urine Bilirubin Negative, Urine Urobilinogen 0.2, Ur Leukocyte Esterase Negative, Urine RBC 10-20, Urine WBC 5-10, Ur Squamous Epith Cells 3-5, Urine Bacteria Trace 12/18/19 07:15: WBC 14.6 H, RBC 3.72 L, Hgb 11.3 L, Hct 34.1 L, MCV 91.9, MCH 30.3, MCHC 33.0, RDW 13.4, Plt Count 204, MPV 10.2, Neut % (Auto) 88.8 H, Lymph % (Auto) 5.9 L, [place] % (Auto) 5.1, Eos % (Auto) 0.1, Baso % (Auto) 0.0 L, Neut # (Auto) 13.0 H, Lymph # (Auto) 0.9, [place] # (Auto) 0.8, Eos # (Auto) 0.0, Baso # (Auto) 0.0, Total Counted 100, Neutrophils % (Manual) 86 H, Band Neutrophils % 1.0, Lymphocytes % (Manual) 12, Monocytes % (Manual) 1 L, Platelet Estimate Normal, RBC Morphology Normal 12/18/19 07:15: Sodium 136, Potassium 4.5, Chloride 106, Carbon Dioxide 23, Anion Gap 11.5, BUN 52 H, Creatinine 1.60 H, Estimated Creat Clear 26, Estimated GFR 41 L, Est GFR ( Amer) 50 L, Glucose 160 H D, Calcium 8.1 L, Phosphorus 2.3 L, Magnesium 2.1, Total Bilirubin 0.6, AST 63 H D, ALT 22, Alkaline Phosphatase 39, Total Protein 5.7 L, Albumin 2.5 L D, Globulin 3.2, Albumin/Globulin Ratio 0.8 L 12/18/19 07:15: Troponin I 10.40 H I & O for Last 24 hours: Intake & Output 12/15/19 12/16/19 12/17/19 12/18/19 11:59 11:59 11:59 11:59 Intake Total 2583 / 2583 2319 / 2319 Output Total 1200 / 1200 Balance 2583 / 2583 1119 / 1119 Weight 115 lb 4.8 oz 116 lb 13.52 oz Narrative: Patient is alert, somewhat hard of hearing, disoriented to time, oriented to person and place. Seems to understand his medical problems. Lungs have fairly good air entry, heart rate irregular but rate controlled, blood pressure much better, abdomen soft, Alvarado catheter draining clear yellow urine. No edema or clubbing. Neurologic exam nonfocal Assessment and Plan (1) DKA (diabetic ketoacidoses) Current visit: Yes Status: Acute Category: Medical Code(s): E11.10 - Type 2 diabetes mellitus with ketoacidosis without coma (2) Elevated troponin Current visit: Yes Status: Acute Category: Medical Code(s): R79.89 - Other specified abnormal findings of blood chemistry (3) ALFONSO (acute kidney injury) Current visit: Yes Status: Acute Category: Medical Code(s): N17.9 - Acute kidney failure, unspecified (4) Atrial fibrillation Current visit: Yes Status: Acute Qualifiers: Atrial fibrillation type: unspecified Qualified Code(s): I48.91 - Unspecified atrial fibrillation Category: Medical Code(s
--- NOTE | 2019-12-18 09:00 | HMH.PNCARD ---
Subjective Date: 12/18/19 Time: 09:00 Principal diagnosis: NSTEMI Interval history: 84 yo WM in bed in NAD. Denies any chest pain or complaints at this time. After thinking about options, the patient has decided against cardiac cath procedure and wants medical therapy with Hospice care. Exam Vital signs and Labs for Last 24 Hours: Temp Pulse Resp BP Pulse Ox 97.9 F 63 20 157/71 H 97 12/18/19 08:00 12/18/19 08:00 12/18/19 08:00 12/18/19 08:00 12/18/19 08:00 Laboratory Results - last 24 hr 12/16/19 13:53: POC Glucose > 600 H* 12/17/19 11:44: POC Glucose 129 H 12/17/19 12:40: Urine Color Yellow, Urine Appearance Clear, Urine pH 6.0, Ur Specific [place] >= 1.030, Urine Protein 3+, Urine Glucose (UA) 3+, Urine Ketones 1+, Urine Blood 2+, Urine Nitrate Negative, Urine Bilirubin Negative, Urine Urobilinogen 0.2, Ur Leukocyte Esterase Negative, Urine RBC 3-5, Urine WBC 5-10, Ur Squamous Epith Cells 3-5, Urine Bacteria 1+ 12/17/19 14:12: Sodium 135 L, Potassium 4.3, Chloride 101, Carbon Dioxide 26, Anion Gap 12.3, BUN 51 H, Creatinine 1.70 H, Estimated Creat Clear 24, Estimated GFR 39 L, Est GFR ( Amer) 47 L D, Glucose 343 H, Calcium 8.8, Total Bilirubin 0.8, AST 101 H, ALT 19, Alkaline Phosphatase 58, Troponin I 24.60 H, Total Protein 7.0, Albumin 3.3 L, Globulin 3.7 H, Albumin/Globulin Ratio 0.9 L, Lipase 71 12/17/19 16:50: POC Glucose 331 H* 12/17/19 20:39: POC Glucose 261 H 12/18/19 06:55: Urine Color Yellow, Urine Appearance Clear, Urine pH 6.0, Ur Specific [place] >= 1.030, Urine Protein 2+, Urine Glucose (UA) 1+, Urine Ketones Trace, Urine Blood 2+, Urine Nitrate Negative, Urine Bilirubin Negative, Urine Urobilinogen 0.2, Ur Leukocyte Esterase Negative, Urine RBC 10-20, Urine WBC 5-10, Ur Squamous Epith Cells 3-5, Urine Bacteria Trace 12/18/19 07:15: WBC 14.6 H, RBC 3.72 L, Hgb 11.3 L, Hct 34.1 L, MCV 91.9, MCH 30.3, MCHC 33.0, RDW 13.4, Plt Count 204, MPV 10.2, Neut % (Auto) 88.8 H, Lymph % (Auto) 5.9 L, [place] % (Auto) 5.1, Eos % (Auto) 0.1, Baso % (Auto) 0.0 L, Neut # (Auto) 13.0 H, Lymph # (Auto) 0.9, [place] # (Auto) 0.8, Eos # (Auto) 0.0, Baso # (Auto) 0.0, Total Counted 100, Neutrophils % (Manual) 86 H, Band Neutrophils % 1.0, Lymphocytes % (Manual) 12, Monocytes % (Manual) 1 L, Platelet Estimate Normal, RBC Morphology Normal 12/18/19 07:15: Sodium 136, Potassium 4.5, Chloride 106, Carbon Dioxide 23, Anion Gap 11.5, BUN 52 H, Creatinine 1.60 H, Estimated Creat Clear 26, Estimated GFR 41 L, Est GFR ( Amer) 50 L, Glucose 160 H D, Calcium 8.1 L, Phosphorus 2.3 L, Magnesium 2.1, Total Bilirubin 0.6, AST 63 H D, ALT 22, Alkaline Phosphatase 39, Total Protein 5.7 L, Albumin 2.5 L D, Globulin 3.2, Albumin/Globulin Ratio 0.8 L 12/18/19 07:15: Troponin I 10.40 H I & O for Last 24 hours: Intake & Output 12/15/19 12/16/19 12/17/19 12/18/19 11:59 11:59 11:59 11:59 Intake Total 2583 / 2583 2319 / 2319 Output Total 1200 / 1200 Balance 2583 / 2583 1119 / 1119 Weight 115 lb 4.8 oz 116 lb 13.52 oz - *Routine Respiratory Exam Present: CTA bilaterally. Absent: accessory muscle use, rales, rhonchi, wheezes - *Routine Cardiovascular Exam Present: RRR. Absent: murmur, gallop, rubs Progress Note: A&P (1) DKA (diabetic ketoacidoses) Status: Acute Current Visit: Yes (2) Elevated troponin Status: Acute Current Visit: Yes (3) ALFONSO (acute kidney injury) Status: Acute Current Visit: Yes (4) Atrial fibrillation Status: Acute Current Visit: Yes (5) Hyperglycemia Status: Acute Current Visit: Yes (6) Hypertensive urgency Status: Acute Current Visit: Yes (7) Cachexia Status: Chronic Current Visit: Yes (8) Leukocytosis Status: Acute Current Visit: Yes (9) UTI (urinary tract infection) Status: Acute Current Visit: Yes (10) NSTEMI (non-ST elevated myocardial infarction) Status: Acute Current Visit: Yes Assessment and Plan for All Diagnoses:: Agree
--- NOTE | 2019-12-18 11:20 | CARE MANAGER ---
Addendum entered by Ana Paula Burger 12/18/19 13:30: Ashlyn with Hospice has stated that Hospice claim service representative will speak with family at [facility] at 7PM this evening per family request. Original Note: Dr. Cuellar discussed with patient Hospice care and patient is agreeable if Hospice deems appropriate. Spoke with daughter, Remedios, who states patient will be going to son's house to stay. Spoke with patient and he is agreeable to this also. Son, Leonel, contacted nurse case manager and states that he needs to get his living room cleaned out in order to prepare for his dad, but he may have it finished tonight as Dr. Cuellar states if everything is in place patient could be discharged later today. Leonel's phone number is [phone] and address is [address] [place] [address], [facility]. Referral called and faxed to Hospice to have evaluated before patient discharges. AIME Nguyen, Sales Correspondence Clerk
[2019-12-18 11:27] LABS: POC Glucose,Bedside 167 (70-110)
[2019-12-18 11:52] LABS: POC Glucose,Bedside 283 (70-110)
[2019-12-18 12:30] VITALS: BMI 15.8
--- NOTE | 2019-12-18 15:06 | PC.NURSE ---
Pt is resting in bed at this time. Pt has been pleasant and cooperative this shift. A&O X4. Family at bedside. Pt worked with PT/OT today and ambulates with a stand-by assist. No complaints of pain or SOA. 20 G peripheral IV in the LT AC is patent and infusing NS w/ 20 K+ @ 150 ML/HR. F/C is patent and draining clear, yellow urine at bedside to gravity. No BM thus far today. FSBS result at lunch noted to be 283 and required 8 units of insulin per sliding scale. Appetite is poor and pt only eats about 10-15% of every meal. Skin is c/d/i with no edema noted. Lungs CTA. VSS and pt is on room air with sats. >95%. Call light within reach. Will continue to monitor.
[2019-12-18 16:00] VITALS: BP 141/77; PULSE 58; RESP 16; TEMP 36.8; O2SAT 91
[2019-12-18 16:17] LABS: POC Glucose,Bedside 229 (70-110)
[2019-12-18 18:47] VITALS: O2SAT 94
--- NOTE | 2019-12-18 18:47 | PC.NURSE ---
Pt's room air sat at rest = 94%.
--- NOTE | 2019-12-18 19:03 | PC.NURSE ---
report given to arleth
[2019-12-18 19:51] VITALS: BP 152/88; PULSE 65; RESP 16; TEMP 36.6; O2SAT 91
[2019-12-18 21:30] LABS: POC Glucose,Bedside 265 (70-110)
[2019-12-19 04:00] VITALS: BP 151/92; PULSE 61; RESP 16; TEMP 36.4; O2SAT 90
--- NOTE | 2019-12-19 04:26 | PC.NURSE ---
A&OX4 At beginning of shift hospice nurse @ bedside for consult.Kitty RN spoke with this RN stating family in agreement of hospice admission pending hosptial DC, also asking for discharge nurse to call hospice office once pt is DC. Also that pt doesn't need any DME equipment @ home before arrival. Pt has no C/O of SOA or pain this shift. Pt has rested quietly this shift. bed alarm activated.
[2019-12-19 05:00] VITALS: BMI 13.4
[2019-12-19 06:09] LABS: POC Glucose,Bedside 71 (70-110)
--- NOTE | 2019-12-19 07:14 | PC.NURSE ---
PATIENT'S WEIGHT OBTAINED THREE TIMES AND ALL THREE WEIGHTS WERE DIFFERENT . PATIENT WAS WEIGHED THE SAME EACH TIME . WEIGHT WAS REPORTED TO RN
[2019-12-19 08:00] VITALS: BP 95/33; PULSE 79; RESP 16; TEMP 36.5; O2SAT 95
--- NOTE | 2019-12-19 08:09 | HMH.DCSUM ---
General - General Admission date:: 12/16/19 Discharge date: 12/19/19 HPI HPI: 84-year-old white male with history of diabetes, chronic renal insufficiency and hypertension who infrequently comes to the office, who lives at home with his long-time clinical esthetician and maintains a DNR status, came to emergency department because of significant weakness and lethargy. He did not want to come to the hospital and stated that he felt fine. In the emergency department he was found to have significant dehydration, elevated troponins, atrial fibrillation with rapid ventricular response and hypertensive crisis with blood pressure in the 190s. He was also found to have significant hyperglycemia with blood sugar in the 700 range. Chest x-ray showed cardiomegaly, and CT scan showed old atrophy and old ischemic changes. He was given IV fluids, IV labetalol I was consulted by ER doctor. I recommended symptomatic treatment/supportive care with fluids, treatment of his hypertension and gentle lowering of his glucose. I examined him later in the afternoon on second floor and discussed case with his daughter and his long-time clinical esthetician. The patient continues to state that he feels well and he denies any chest pain, shortness or breath or chest pain. Hospital Course Hospital Course: 84-year-old gentleman with multiple organ dysfunction admitted in DKA with acute on chronic kidney injury, high anion gap metabolic acidosis, and significant cachexia. Patient had prominent heart strain during admission from the severity of his illness. Troponin peaked at 24 with inferior wall conduction abnormalities on EKG. Patient's DKA was corrected with fluids and insulin. Kidney and function showed improvement during admission with rehydration. Poor p.o. intake. Cardiology was consulted, decision made to not do heart cath due to the severity of illness and end-stage complex diseases. Extensive discussion with family led to decision to transfer home on hospice. Patient stable for discharge into son's care who is his POA. Hospice consulted and to see patient when he gets home. Medication list at discharge is ordered for blood pressure. Initiated on once daily long-acting insulin of 5 units due to insulin requirements while admitted. Kidney function prevents oral antihyperglycemic, and I would not want the patient to become severely hyperglycemic and go into DKA again like he was on presentation. Would recommend monitoring blood sugar only if patient becomes severely fatigued and is not eating well. Alvarado to be left in place at patient's request due to comfort. Hospice to meet family at home. Objective Vital signs: Temp Pulse Resp BP Pulse Ox 97.6 F 61 16 151/92 H 90 L 12/19/19 04:00 12/19/19 04:00 12/19/19 04:00 12/19/19 04:00 12/19/19 04:00 Narrative: Patient is alert, somewhat hard of hearing, disoriented to time, oriented to person and place. Seems to understand his medical problems. Lungs have fairly good air entry, heart rate irregular but rate controlled, blood pressure much better, abdomen soft, Alvarado catheter draining clear yellow urine. No edema or clubbing. Alvarado in place draining clear/yellow urine Neurologic exam nonfocal Results Labs on day of discharge: Labs from last 24 hours 12/19/19 12/18/19 12/18/19 05:33 21:13 16:03 POC Glucose 71 265 H 229 H Troponin I 12/18/19 12/18/19 12/18/19 11:39 07:15 05:38 POC Glucose 283 H 167 H Troponin I 10.40 H Preliminary micro results at discharge 12/17/19 12:40 Urine Culture - Preliminary Urine,Catheterized NO GROWTH AFTER 24 HOURS DS: Diagnosis - Discharge Diagnosis (1) DKA (diabetic ketoacidoses) Status: Resolved (2) Elevated troponin Status: Acute (3) ALFONSO (acute kidney injury) Status: Acute (4) Atrial fibrillation Status: Chronic (5) Hyperglycemia Status: Chronic (6) Hypertensive urgenc
--- NOTE | 2019-12-19 09:03 | SW/DCPLANNER ---
I have spoke with Ashlyn with [facility]. They will admit this patient once he is discharged from [facility] to home. I have informed Ashlyn that he will be discharging today. I will fax discharge summary to Ashlyn and notify her once patient is leaving [facility]. I have informed patients nurse (Jm).
== END 2019-12-19 11:07 | disposition hospice, home (50) | DRG 637 ==
LOC: ER 16:51 → 2ND 12-17 05:52
PROVIDERS: Internal Medicine Adolescent Medicine; Physician Assistant; Admitting Provider Internal Medicine Adolescent Medicine; Emergency Provider Emergency Medicine; PCP Internal Medicine Adolescent Medicine; Visit Provider Internal Medicine Adolescent Medicine
DX: E11.10 Type 2 diabetes mellitus with ketoacidosis without coma (principal); I21.4 Non-ST elevation (NSTEMI) myocardial infarction; N39.0 Urinary tract infection, site not specified; R64 Cachexia; Z68.1 Body mass index [BMI] 19.9 or less, adult; I16.0 Hypertensive urgency; N18.3 Chronic kidney disease, stage 3 (moderate); Z66 Do not resuscitate; I48.91 Unspecified atrial fibrillation; I12.9 Hypertensive chronic kidney disease with stage 1 through stage 4 chronic kidney disease, or unspecified chronic kidney disease
CPT/HCPCS: 36415; 70450; 71045; 80048; 80053; 80076; 80162; 81001; 82009; 82803; 82962; 83690; 83735; 84100; 84484; 85007; 85025; 85610; 85730; 87086; 93005; 93306; 94761; 96365; 96367; 96375; 97116; 97162; 97165; 97530; 99285; J2405